=== PATIENT | male | born 1955 | race Caucasian/White ===

== ENCOUNTER 2016-09-08 06:29 | Inpatient (IN) | payer OTHER ==
--- NOTE | 2016-09-07 05:37 | PREOPHP ---
DATE OF ADMISSION: 09/08/[address] Jakob Andrews. The patient is scheduled for schedule of total replacement of the patient's right shoulder. HISTORY OF PRESENT ILLNESS: This is a 61-year-old male who is scheduled for the above howard gical procedure. He presently denies any chest pain, shortness of breath, irregular heartbeat, sync ope, or lightheadedness. He has no recent fever, chills, or rales. He has no nausea or vomiting. His present medical history is positive for labile hypertension. He has been treated with Toprol 50 mg XL daily. OTHER SURGICAL PROCEDURES: Include bilateral hip replacement, left shoulder replacement, and tonsil lectomy. MEDICATIONS: Mentioned as above. SOCIAL HISTORY: He is a nonsmoker, does not drink alcohol. FAMILY HISTORY: He has no history of bleeding disorders. PAST MEDICAL HISTORY: Positive for labile hypertension. Negative for cardiac disease, rheumatic fe radha, thyroid disease, hepatitis, cerebrovascular accident. ALLERGIES: NONE TO MEDICATIONS. PHYSICAL EXAMINATION: VITAL SIGNS: Blood pressure was 138/80, pulse was 70 per minute and regular. GENERAL APPEARANCE: This is a well-developed, well-nourished 61-year-old male, alert, and oriented x3. HEENT: Head atraumatic. Conjuctivae pink. Sclerae nonicteric. Pupils were equal and reactive. F undi were benign. NECK: Supple. Carotids +2. Thyroid not enlarged, no nodules palpable. No adenopathy. Trachea mi dline. LUNGS: Clear to auscultation and percussion. CARDIAC: Normal sinus rhythm. No murmurs or gallops. ORAL CAVITY: Unremarkable. Tongue moist papillae. No adenopathy noted. ABDOMEN: Benign. No organomegaly palpable. No masses palpable. Otherwise benign exam. RECTAL: Unremarkable. FLANK: No CVA tenderness. SPINE: No tenderness on palpation. SKIN: Dry and warm. NEUROLOGIC: Alert and oriented x3. Cranial nerves II-XII intact. Peripherally neurological was gr ossly intact. ASSESSMENT: This is a 61-year-old male with a history of labile hypertension, controlled with medic ation, who otherwise is scheduled for total right shoulder replacement and is medically cleared for this procedure. The patient admitted to the service of Dr. Roverto Garcia. JAKOB CRUZ DICTATING FOR ROVERTO DAVALOS. Dictated By: ROVERTO MARTINEZ/KIRAN Conf#: [id number] DID#: [id number]
[2016-09-07 10:27] VITALS: BMI 29.3
[2016-09-08] VITALS (48 sets, daily range): BP systolic 108–164; BP diastolic 56–92; PULSE 50–66; RESP 18–30; Ht 175.3 cm; Wt 91.0 kg
[~2016-09-08] VITALS: Ht 175.3 cm; Wt 91.0 kg
[~2016-09-08 06:29] MED LIST: BUPIVACAINE 0.5% (SDV) 30 ML, morphine SULFATE (PF) 8 MG, EPINEPHrine 0.3 MG, KETOROLAC... IRR SCH; CEFAZOLIN 2 GM/50 ML (PMX) 50 ML IVPB ONE; DEXAMETHASONE 1 MG TAB PO ONE; DOXY100T20 PO; GABAPENTIN 300 MG CAP PO ONE; METO-429 PO; TRANEXAMIC ACID 1,000 MG in SOD CHLORIDE 0.9% 100 ML IVPB ONE; traMADol 50 MG TAB PO ONE
--- NOTE | 2016-09-08 06:52 | HPN ---
Date/Time of Note Date/Time of Note DATE: 09/08/16 TIME: 06:52 Interval H&P Admission Note Pt. seen H&P reviewed: No system changes ROVERTO FARIAS MD Sep 08, 2016 06:52
[2016-09-08] MEDS ORDERED: CEFAZOLIN 1 GM INJ ONE (07:32)
[2016-09-08] MEDS ORDERED: LIDOCAINE 2% (SDV) 5 ML INJ ONE (07:32)
[2016-09-08] MEDS ORDERED: ROPIVACAINE 0.5 % 30 ML VIAL ONE (07:32)
[2016-09-08] MEDS ORDERED: PROPOFOL 20 ML ONE (07:32)
[2016-09-08] MEDS ORDERED: METO50TA16 PO (07:36)
[2016-09-08] MEDS ORDERED: BUPIVACAINE 0.5%/EPI (SDV) 30 ML INJ ONE (08:37)
[2016-09-08] MEDS ORDERED: THROMBIN 5000 UNIT VIAL ONE (08:37)
[2016-09-08] MEDS ORDERED: CA CHLORIDE 10% 10 ML SYRINGE ONE (08:37)
[2016-09-08] MEDS ORDERED: POLYMYXIN/BACITRACIN 1L IRRIG ONE (08:37)
[2016-09-08] MEDS ORDERED: DIPHENHYDRAMINE 50 MG INJ IV PRN ×2 (10:00→12:00)
[2016-09-08] MEDS ORDERED: HYDROmorphONE (0.2 MG/ML) 10ML SYG IV PRN ×2 (10:00)
[2016-09-08] MEDS ORDERED: FENTAnyl 50 MCG/ML VIAL IV PRN ×2 (10:00)
[2016-09-08] MEDS ORDERED: morphine (1 MG/ML) 10ML SYRINGE IV PRN ×2 (10:00)
[2016-09-08] MEDS ORDERED: EPHEDrine SULFATE 50 MG/5 ML SYG IV PRN (10:00)
[2016-09-08] MEDS ORDERED: LABETALOL HCL 20MG INJ IV PRN (10:00)
[2016-09-08] MEDS ORDERED: MEPERIDINE 25 MG INJ IV PRN (10:00)
[2016-09-08] MEDS ORDERED: METOCLOPRAMIDE 10 MG INJ IV PRN (10:00)
[2016-09-08] MEDS ORDERED: hydrALAzine 20 MG INJ IV PRN (10:00)
[2016-09-08] MEDS ORDERED: ONDANSETRON 4 MG INJ IV PRN ×2 (10:00→12:00)
[2016-09-08] MEDS ORDERED: MIDAZOLAM 1 MG/ML 2 ML INJ IV PRN (10:00)
[2016-09-08] MEDS ORDERED: OXYCODONE/ACETAMINOPHEN (5/325) TAB PO PRN (12:00)
[2016-09-08] MEDS ORDERED: morphine 4 MG/ML VIAL IV PRN (12:00)
[2016-09-08] MEDS ORDERED: KETOROLAC 15 MG INJ IV PRN (12:00)
[2016-09-08] MEDS ORDERED: TRANEXAMIC ACID 1,000 MG in SOD CHLORIDE 0.9% 100 ML IV ONE (12:00)
[2016-09-08] MEDS ORDERED: MAGNESIUM HYDROXIDE 30ML CUP PO PRN (12:00)
[2016-09-08] MEDS ORDERED: ACETAMINOPHEN 500 MG TAB PO PRN (12:00)
[2016-09-08] MEDS ORDERED: morphine 2 MG INJ IV PRN (12:00)
[2016-09-08] MEDS: CEFAZOLIN 1 GM/50 ML (PMX) 50 ML IVPB SCH ×2 (12:00→20:12)
[2016-09-08] MEDS ORDERED: ZOLPIDEM 5 MG TAB PO PRN (12:00)
--- NOTE | 2016-09-08 12:00 | OPR ---
DATE OF OPERATION: 09/08/2016 ATTENDING PHYSICIAN: Dr. Garcia SIGNAL CONSTRUCTOR: None. PREOPERATIVE DIAGNOSIS: Right shoulder primary osteoarthritis. POSTOPERATIVE DIAGNOSES: 1. Right shoulder primary osteoarthritis. 2. Right shoulder acromioclavicular joint primary arthritis. 3. Right shoulder partial biceps tendon tear. OPERATION PERFORMED: 1. Right shoulder hemiarthroplasty. 2. Right open distal clavicle excision. 3. Right shoulder open biceps tenodesis. PROCEDURE IN DETAIL: Following administration of general endotracheal anesthesia, the patient was p laced in the beach chair position. The right upper extremity was prepped and draped in the usual st erile fashion. An extended deltopectoral incision was then made, exposing the superior aspect of th e joint. The acromioclavicular joint capsule was then palpated. The AC joint was then entered throu gh a transverse incision in the deltotrapezial fascia. The distal clavicle was skeletonized for a d istance of 10 mm. Severe arthritic changes were noted. The distal clavicle was then excised for a distance of 10 mm. A good decompression was confirmed. Severe synovitis was also debrided from the joint. The superior acromion was also debrided down to a flat base. The AC joint capsule was then closed using interrupted stitches following irrigation. The deltopectoral interval was then approached. The deltoid was retracted, the conjoined retracted medially. Subscapularis was identified. The biceps groove was entered. Severe arthritic changes w ere noted within the joint. The bicipital tendon was also severely inflamed and partially torn. Th e intra-articular portion was resected. The biceps was then tenodesed to the bicipital group using multiple #2 sutures. A stable biceps was obtained. The subscapularis was then retracted. A humeral head cut was then made after peripheral osteophytes were removed. Very severe arthritic changes were noted. The glenoid was then exposed. Large peripheral osteophytes were removed. In addition, there was a very large glenoid cyst centrally following reaming and flattening and it was obvious that the gleno id cyst was large. This area was packed with small amounts of bone graft and the decision was then made to perform a hemiarthroplasty only. The hemiarthroplasty was then performed specifically. The humeral canal was then reamed up to 12 mm . A DePuy humeral component with a 44 x 18 humeral head was then implanted, with solid fixation. The subscapularis was then reapproximated using #2 sutures that were passed circumferentially around the humerus. A solid component was obtained, with full range of motion and no instability. The los int was thoroughly irrigated, closed using running stitches. A Prineo dressing was then applied for final closure, with watertight closure. The patient was then awakened and transported to recovery i n stable condition, tolerating the procedure well. Estimated blood loss for this procedure was 100 mL. Postoperative x-rays will be obtained in the recovery room. Dictated By: ROVERTO MARTINEZ/KIRAN Conf#: [id number] DID#: [id number]
--- NOTE | 2016-09-08 12:59 | RADRPT ---
PROCEDURE: XR Shoulder. CLINICAL INDICATION: Postop TECHNIQUE: Two views of the right shoulder are available for review. COMPARISON: None available FINDINGS: Patient is status post right shoulder arthroplasty. Hardware appears intact. Alignment is grossly within normal limits. There is no evidence of hardware failure or fracture. There are moderate deg enerative change of the right acromioclavicular joint. Visualized portions of the right chest wall are within normal limit IMPRESSION: 1. Right shoulder arthroplasty with intact hardware in grossly anatomic alignment. RPTAT: KK .Saw Butler MD, MD Date Time Electronically viewed and signed by .Saw Butler MD, MD on 09/08/2016 12:58 .B/
[2016-09-08] MEDS: DEXAMETHASONE 2 MG TAB PO SCH ×3 (18:00→23:32)
[2016-09-08] MEDS: SENNA/DOCUSATE NA (8.6MG/50MG) TAB PO SCH (20:13)
[2016-09-08] MEDS: OXYCODONE/ACETAMINOPHEN (5/325) TAB PO PRN (20:20)
[2016-09-08] MEDS ORDERED: GABAPENTIN 300 MG CAP PO SCH (21:00)
[2016-09-09] MEDS: OXYCODONE/ACETAMINOPHEN (5/325) TAB PO PRN (03:24)
[2016-09-09] MEDS: CEFAZOLIN 1 GM/50 ML (PMX) 50 ML IVPB SCH (03:31)
[2016-09-09 06:00] VITALS: BP 103/60; PULSE 60; RESP 18
--- NOTE | 2016-09-09 06:27 | PDOCDIS ---
Discharge Instructions DIAGNOSIS Discharge Diagnosis: Right shoulder arthritis CONDITION Patient Condition: Good HOME CARE INSTRUCTIONS: Diet Instructions: Regular ACTIVITY: Activity Restrictions: Slowly Increase Activity Rest between Activity Avoid heavy lifting Do not Drive Do not operate Power Tool Avoid Heavy Housework Keep Limb Elevated Bathing Restrictions: Shower FOLLOW UP/APPOINTMENTS Appointments 2 weeks 2 SCHOOL/WORK RELEASE May return to School/Work with: With Restrictions School/Work Release Comment: 5 pounds tabletop usage for 6 weeks ROVERTO FARIAS MD Sep 09, 2016 06:27
[2016-09-09] MEDS: DEXAMETHASONE 2 MG TAB PO SCH (06:29)
--- NOTE | 2016-09-09 06:59 | PN ---
Date/Time of Note Date/Time of Note DATE: 09/09/16 TIME: 06:58 24 hour Interval Summary Patient is awake and alert with minimal pain Physical examination: He is neurologically intact. His warnings clean and dry. He has no signs of DVT. Impression: Status post partial shoulder replacement Plan: He will begin occupational therapy this morning discharged following that. Physical Exam Vital Signs Date Time Temp Pulse Resp B/P Pulse Ox O2 Delivery O2 Flow Rate FiO2 09/09/16 06:00 97.9 60 18 103/60 98 Room Air Intake and Output 09/08/16 09/08/16 09/09/16 15:00 23:00 07:00 Intake Total 550 ml 50 ml 850 ml Output Total 50 ml 800 ml Balance 500 ml 50 ml 50 ml VTE Prophylaxis VTE Prophylaxis Intervention: anti-embolic stocking Lines/Catheters IV Catheter Type: Saline Lock Zarate in Place: No Medications Medications Home Meds Reported Medications Metoprolol Succinate* (Toprol XL*) 50 Mg Tab.er.24h, 50 MG PO DAILY, #30 TAB 09/08/16 Doxycycline Hyclate* (Doxycycline Hyclate*) 100 Mg Tablet.dr, 100 MG PO BID, #10 01/20/16 Discontinued Reported Medications Metoprolol Tartrate* (Lopressor*) 50 Mg Tab, 50 MG PO DAILY, #30 01/20/16 ROVERTO FARIAS MD Sep 09, 2016 06:59
--- NOTE | 2016-09-09 07:00 | DS ---
Date/Time of Note Date/Time of Note DATE: 09/09/16 TIME: 06:59 Discharge Summary Admission/Discharge Info Admit Date/Time Sep 08, 2016 at 06:29 Discharge Date/Time September 09, 2016 following occupational therapy Final Diagnosis Right shoulder arthritis Patient Condition: Good Procedures Right shoulder hemiarthroplasty with distal clavicle excision. Hx of Present Illness Pain and stiffness in the right shoulder. Hospital Course Patient was admitted and underwent an uncomplicated procedure postoperative day #1 he was afebrile wound was clean and dry neurologically intact to be discharged and followed up in 2 week Home Meds Reported Medications Metoprolol Succinate* (Toprol XL*) 50 Mg Tab.er.24h, 50 MG PO DAILY, #30 TAB 09/08/16 Doxycycline Hyclate* (Doxycycline Hyclate*) 100 Mg Tablet.dr, 100 MG PO BID, #10 01/20/16 Discontinued Reported Medications Metoprolol Tartrate* (Lopressor*) 50 Mg Tab, 50 MG PO DAILY, #30 01/20/16 Follow-up Plan 2 week ROVERTO FARIAS MD Sep 09, 2016 07:00
[2016-09-09 08:00] VITALS: BP 113/81; RESP 18
[2016-09-09] MEDS: SENNA/DOCUSATE NA (8.6MG/50MG) TAB PO SCH (08:56)
[2016-09-09] MEDS ORDERED: METOPROLOL (XL) 50 MG TAB PO SCH (09:00)
[2016-09-09] MEDS ORDERED: ASPIRIN 81 MG TAB PO SCH (09:00)
== END 2016-09-09 11:39 | disposition home or self-care (01) | DRG 483 ==
LOC: REC 06:29 → MS1 17:27
PROVIDERS: ADMIT Orthopaedic Surgery; ATTEND Orthopaedic Surgery
PROC: 0LS30ZZ Reposition Right Upper Arm Tendon, Open Approach (ICD-10-PCS; 2016-09-08)
PROC: 0PB90ZZ Excision of Right Clavicle, Open Approach (ICD-10-PCS; 2016-09-08)
PROC: 0RRJ0J6 Replacement of Right Shoulder Joint with Synthetic Substitute, Humeral Surface, Open Approach (ICD-10-PCS; principal; 2016-09-08 09:30)
DX: M19.011 Primary osteoarthritis, right shoulder (principal); I10 Essential (primary) hypertension; Z96.612 Presence of left artificial shoulder joint; Z96.643 Presence of artificial hip joint, bilateral; M65.811 Other synovitis and tenosynovitis, right shoulder
CPT/HCPCS: 86850; 86900; 86901; 86999; 88304; 88311; 97162; C1713; C1776; J0171; J0690; J0735; J1170; J1885; J2274; J2405; J2795; J3370